=== PATIENT | female | born 1945 | race Caucasian/White ===

== ENCOUNTER 2017-01-19 09:34 | Inpatient (IN) ==
--- NOTE | 2017-01-19 10:14 | EKG Report ---
Test Performed on : 01/19/2017 09:50:46 AM Test Reason : jaw pain Blood Pressure : / mmHG Vent. Rate : 058 BPM Atrial Rate : 058 BPM P-R Int : 214 ms QRS Dur : 154 ms QT Int : 448 ms P-R-T Axes : 009 -10 124 degrees QTc Int : 439 ms Sinus bradycardia. with 1st degree AV block. Left bundle branch block Abnormal ECG No previous ECGs available Unconfirmed Result
[2017-01-19] MEDS ORDERED: ASPIRIN PO STA (10:48)
[2017-01-19] MEDS ORDERED: NITROGLYCERIN SL PRN (10:48)
[2017-01-19 11:05] LABS: MANUAL DIFF NEEDED? NO
[2017-01-19 11:12] LABS: BASO% 0.2 % (0.0-0.8); EOS# 0.11 X1000 (0.0-0.7); EOS% 2.6 % (0.0-10.0); HEMATOCRIT 36.1 % (37.0-47.0); HEMOGLOBIN 11.7 g/dL (12.0-16.0); LYMPH# 1.31 X1000 (1.2-3.4); LYMPH% 30.8 % (20.5-51.1); MCH 31.8 PG (27-31); MCHC 32.4 g/dL (33-37); MCV 98.1 FL (81-99); MONO# 0.48 X1000 (0.11-0.59); MONO% 11.3 % (1.7-9.3); NEUT% 55.1 % (42.2-75.2); PLT 201 X1000 (130-400); RBC 3.68 XMIL (4.2-5.4)
[2017-01-19 11:28] LABS: PTT 25.9 Seconds (22.0-36.0)
[2017-01-19 11:29] LABS: INR 1.01; PROTIME 10.6 Seconds (9.2-11.7)
--- NOTE | 2017-01-19 11:30 | Diag Imaging Result Doc PS360 ---
EXAM: CT HEAD W/O CONTRAST HISTORY: lower extremity weakness TECHNIQUE: CT of the head without contrast with dose reduction (clarity.) COMMENT: There is no evidence of mass effect, bleed, abnormal extra-axial fluid collection, hydrocephalus or acute bony abnormality. There are no previous studies available for comparison. IMPRESSION: No evidence of acute disease. Electronically signed by Jimbo Hester 01/19/2017 11:28 AM
[2017-01-19 11:40] LABS: AGAP 10; ALBUMIN 3.9 g/dL (3.5-5.0); ALKALINE PHOSPHATASE 73 U/L (32-104); BUN 14 mg/dL (8-22); CHLORIDE 102 mmol/L (98-107); COSMO 280; GOT 17 U/L (10-30); GPT 11 U/L (10-36); MAGNESIUM 1.8 mg/dL (1.5-2.7); POTASSIUM 4.2 mmol/L (3.5-5.1); SODIUM 139 mmol/L (136-145); TCO2 27 mmol/L (25-35); TOTAL BILIRUBIN 0.44 mg/dL (0.20-1.00); TOTAL PROTEIN 6.3 g/dL (6.3-8.3)
[2017-01-19 12:05] LABS: CK PROFILE 478 U/L (24-173)
[2017-01-19 12:27] LABS: CK INDEX 0.9 (0.0-2.5); CK-MB 4.37 ng/mL (0.0-5.0)
--- NOTE | 2017-01-19 12:31 | Diag Imaging Result Doc PS360 ---
EXAM: CHEST-2 VIEWS HISTORY: CP TECHNIQUE: PA and lateral chest COMMENT: There is a prominent epicardial fat pad on the right. There is no evidence of acute cardiac or pulmonary disease. No previous studies are available for comparison. IMPRESSION: No acute disease. Electronically signed by Jimbo Hester 01/19/2017 12:29 PM
[2017-01-19] MEDS ORDERED: LASIX IV ONE (12:47)
--- NOTE | 2017-01-19 14:25 | PROVIDER DOCUMENTATION ---
This chart was entered by Lina Ramsey Scribe, acting as scribe for Jorge Oneill MD. HPI-General Adult - General Chief Complaint: General Adult Stated Complaint: JAW PAIN Time Seen by Provider: 01/19/17 10:19 Source: patient Allergies/Adverse Reactions: Patient Allergies Allergy/AdvReac Type Severity Reaction Status Date / Time Sulfa (Sulfonamide AdvReac Intermediate NAUSEA Verified 01/19/17 11:25 Antibiotics) Home Medications: Home Medication List Medication Instructions Recorded Confirmed Last Taken Type Carvedilol [Coreg] 6.25 mg PO BID 01/19/17 01/19/17 01/18/17 09:00 History Clopidogrel Bisulfate [Plavix] 75 mg PO DAILY 01/19/17 01/19/17 01/18/17 09:00 History Cyanocobalamin [Cyanocobalamin] 1,000 mcg IM Q30D 01/19/17 01/19/17 12/23/16 History Cyclosporine 0.05% Oph Drops 2 drop BOTH EYES DAILY 01/19/17 01/19/17 01/18/17 09:00 History [Restasis 0.05% Oph Drops] Lisinopril/Hydrochlorothiazide 1 tab PO DAILY 01/19/17 01/19/17 01/18/17 09:00 History [Lisinopril-Hctz 20-12.5 mg Tab] Metformin HCl [Metformin HCl] 500 mg PO BID AC 01/19/17 01/19/17 01/18/17 09:00 History Multivit with Iron-Minerals 1 each PO DAILY 01/19/17 01/19/17 01/18/17 09:00 History [Complete Senior] Omeprazole [Omeprazole] 20 mg PO DAILY 01/19/17 01/19/17 01/18/17 07:00 History Pravastatin Sodium [Pravastatin 40 mg PO HS 01/19/17 01/19/17 01/18/17 20:00 History Sodium] Spironolactone [Spironolactone] 25 mg PO DAILY 01/19/17 01/19/17 01/18/17 09:00 History - History of Present Illness -Gen Adult Nature of Presenting Problems: 71 year-old female with history of heart disease, 5 heart stints, HOP, HTN, and DM, presents to the ER with right sided jaw pain and weakness. She began having jaw pain yesterday morning while at [employer]lic[employer]. She took a Nitroglycerin but had no change in her pain. She continues to have right sided jaw pain. She was restless through the night and was unable to rest very well. This morning while making the bed she became weak in her lower extremities, predominately in her left leg. She had a negative stress test on 11/18/16, and a negative ECHO in 2016. No other symptoms are presented at this time. Location of Pain/Injury: reports: head (Right jaw) Pain Radiation: reports: no radiation. denies: chest Quality of Pain: reports: aching Severity: reports: mild Onset/Duration: reports: 24 hours ago Timing: reports: still present Context/Activities at Onset: reports: light activity Modifying Factors: improves with: nothing Associated Symptoms: reports: weakness. denies: arm pain, back/neck pain, chest pain, dizziness, fatigue, fever/chills Similar Symptoms Previously?: Yes Recently seen or treated by another doctor?: Yes - Diabetes Related Context Context: denies: low blood sugar, high blood sugar Review of Systems - Adult - REVIEW OF SYSTEMS - ADULT Constitutional: reports: no symptoms reported, see HPI Eyes: reports: no symptoms reported, see HPI Ears, Nose, Mouth & Throat: reports: see HPI, other (Right jaw pain) Cardiovascular: reports: no symptoms reported, see HPI. denies: chest pain Respiratory: reports: no symptoms reported, see HPI Gastrointestinal: reports: no symptoms reported, see HPI Genitourinary: reports: no symptoms reported, see HPI Musculoskeletal: reports: see HPI, muscle weakness (Lower extremities, worse in left side.) Integumentary: reports: no symptoms reported, see HPI Neurological: reports: no symptoms reported, see HPI Psychiatric: reports: no symptoms reported, see HPI Endocrine: reports: no symptoms reported, see HPI Hematologic/Lymphatic: reports: no symptoms reported, see HPI Allergic/Immunologic: reports: no symptoms reported, see HPI All Other Systems: Reviewed and Negative Past History - Adult - PAST MEDICAL HISTORY-ADULT Review of Records: reports: Old Records Reviewed, Nursing Assessment Review, Medications Reviewed, Social history reviewed & non-contributory. - PRIOR SURGERIES/PROCEDURES Surgical/Procedure History: reports: cardiac stent - SOCIAL HISTORY Smoking: non-smoker Substance Use: none/never Alcohol Use Frequency: never Physical Exam-General - PHYSICAL EXAM-ADULT Initial Vital Signs Reviewed: Yes - CONSTITUTIONAL General Appearance: appears well, alert, no apparent distress - EYES Eyes: PERRL/EOMI - HEAD, EARS, NOSE, MOUTH & THROAT HENMT: normocephalic/atraumatic, moist mucous membranes - NECK Neck: non-tender, full range of motion, supple, normal inspection - RESPIRATORY Respiratory: chest non-tender, lungs clear, normal breath sounds, no pleuratic chest pain, no respiratory distress, no accessory muscle use - CARDIOVASCULAR Cardiovascular: normal peripheral pulses, regular rate, rhythm - GASTROINTESTINAL (ABDOMEN) Abdominal Exam: normal bowel sounds, non tender, soft - LYMPHATIC Lymphatic: no adenopathy - MUSCULOSKELETAL Back Exam: normal inspection, no CVA tenderness Extremity: normal range of motion, non-tender, normal inspection, no pedal edema , no calf tenderness - SKIN Integumentary: normal color, normal turgor, warm/dry, warm. negative: diaphoresis, swelling - NEUROLOGIC Neurologic: manager animation II-XII nml as tested, grossly normal, no motor/sensory deficits - PSYCHIATRIC Psych/Mental Status: normal mood/affect, normal thought content, normal thought process, oriented x 3 Progress - PLAN OF CARE/RESULTS Progress/Plan/Lab Results: Vital Signs - 8 hr 01/19/17 09:49 01/19/17 10:48 Temperature 98.0 F Pulse Rate 67 60 Respiratory Rate 18 18 Blood Pressure 151/63 171/76 O2 Sat by Pulse Oximetry 100 95 Orders Category Date Time Status Cardiac Monitoring DIRECTED Care 01/19/17 10:48 Active Oxygen Therapy- ED Nursing DIRECTED Care 01/19/17 10:48 Active Saline Loc NOW Care 01/19/17 10:48 Active CHEST-2 VIEWS [RAD] Stat Exams 01/19/17 10:[address] HEAD W/O CONTRAST [CT] Stat Exams 01/19/17 10:52 Ordered CBC WITH ELECTRONIC DIFF [HEME] Stat Lab 01/19/17 10:30 Results CK PROFILE [SP CHEM] Stat Lab 01/19/17 10:30 Received COMPREHENSIVE METABOLIC PANEL [CHEM] Stat Lab 01/19/17 10:30 Received MAGNESIUM [CHEM] Stat Lab 01/19/17 10:30 Received PRO B-NATRIURETIC PEPTIDE Stat Lab 01/19/17 10:30 Received PROTIME WITH INR [COAG] Stat Lab 01/19/17 10:30 Received PTT [COAG] Stat Lab 01/19/17 10:30 Received TROPONIN T Stat Lab 01/19/17 10:30 Received Aspirin Med 01/19/17 10:48 Discontinued 325 mg PO STAT STA Nitroglycerin Sl [Nitroglycerin] Med 01/19/17 10:48 Active 0.4 mg SL Q5M PRN PRN EKG [EKG] Stat Ther 01/19/17 09:52 Draft EKG [EKG] Stat Ther 01/19/17 10:48 Ordered Result Diagrams: 01/19/17 10:30 01/19/17 10:30 - EKG 1 Time of EKG reading by physician:: 09:50 EKG Read and Signed by:: Jorge Oneill EKG Interpretation (*Must complete 3 of following elements*): Abnormal Rate: 58 (bradycardia) Rhythm: Sinus bradycardia with 1st degree AV block. [place]: normal (PRT 9 -10 124.) QRS: normal (QRS duration 154 ms.) OH Interval: normal (OH interval 214 ms.) Comments: Left bundle branch block. - XRAY 1 XRAY Study: Chest Impression: Normal XRAY Interpretation: No acute disease. - CT/MRI 1 CT Study: Head Impression: Normal CT Results: No evidence of acute disease. - CONSULTS/PCP/HOSPITALIST Notification #1 *Consult/PCP/Hospitalist*: Time Discussed: 14:19 Consult Disposition: other (ADMIT PATIENT TO HOSPITALIST, HE WILL CATH) Departure - Departure Date of Disposition Decision: 01/19/17 Time of Disposition Decision: 14:24 DIAGNOSIS: Angina at rest Disposition: ADMITTED INPATIENT 09 Certified Medical Emergency: Emergent Condition: Stable Referrals and Follow-Ups: Reynaldo Eddy MD [Primary Care Provider] - - Critical Care Note This patient required my direct & personal management of CC.: Yes Attestation - Physician/ MILI Attestation The physician spent face to face time with patient:: Yes Advanced Practice Provider documentation review:: Supervising physician onsite and consulted in the evaluation and care of this patient. The physician did have a face to face encounter with the patient. This chart was documented by the indicated scribe, (Braulio,Lina M, Scribe) and accurately reflects the services I performed and decisions made by me, Jorge Oneill MD, as attested by the provider's signature.
--- NOTE | 2017-01-19 15:22 | EKG Report ---
Test Performed on : 01/19/2017 3:02:54 PM Test Reason : JAW PAIN Blood Pressure : / mmHG Vent. Rate : 068 BPM Atrial Rate : 068 BPM P-R Int : 200 ms QRS Dur : 152 ms QT Int : 434 ms P-R-T Axes : -17 -19 112 degrees QTc Int : 461 ms Normal sinus rhythm. Left bundle branch block Abnormal ECG When compared with ECG of 19-JAN-2017 09:50, (Unconfirmed) No significant change was found Unconfirmed Result
[2017-01-19] MEDS ORDERED: TYLENOL PO PRN (17:21)
[2017-01-19] MEDS ORDERED: ZOFRAN IV PRN (17:21)
--- NOTE | 2017-01-19 17:33 | CONSULTATION ---
DATE OF CONSULTATION: 01/19/2017 INDICATION: Jaw pain. HISTORY OF PRESENT ILLNESS: Ms Steele is a 71-year-old white female with a history of coronary disease who presented for evaluation of right-sided jaw pain. This has apparently been going on since yesterday. This discomfort started upon waking. It only aggravates her with activities such as yawning or other large movements of the jaw. Normal talking does not aggravate the symptom. There is no worsening of the symptom with exertional movements like walking. She noted the pain persisted since yesterday but again only occurs with those large movements of the jaw. She is not having any chest pain. She is not having any diaphoresis, nausea or vomiting. She apparently had similar type symptoms in 2010 when she was catheterized in [place]. At that time she apparently had 2 stents placed. PAST MEDICAL HISTORY: Significant for. 1. Coronary disease with history of PCI previously. She apparently had drug-eluting stents to the RCA and OM in 2003 followed by drug-eluting stents the mid LAD and PDA in [place]. 2. History of left bundle branch block. This is chronic. 3. Hypertension. 4. Hyperlipidemia. 5. Diabetes mellitus. 6. Reflux disease. SOCIAL HISTORY: She does not smoke. FAMILY HISTORY: Significant for hypertension. REVIEW OF SYSTEMS: A 10 system review of systems is negative except for those things mentioned in HPI. PHYSICAL EXAMINATION: Vital signs: She is afebrile. Her heart rates are in the 60s to 70s. Her blood pressure most recent is 151/123. General: She is in no acute distress. HEENT: Oropharynx is moist. She has normal dentition. She does not have any discomfort with palpation of the right jaw area nor does she have any sort of hypermobility or instability in the joint area. There is no clicking upon palpation of the jaw. Her eye examination shows pink conjunctivae. White sclerae. Neck: Examination shows no obvious thyromegaly or thyroid tenderness. Cardiovascular: She is in a regular rate and rhythm. She has no obvious murmurs. She has no S3. She has no lower extremity edema. Chest: Clear bilaterally. She has no increased work of breathing. Abdomen: Soft, nontender, nondistended. She has no obvious organomegaly. Skin Exam: Warm and dry throughout without any rashes. Neurological: Moving all extremities well. Cranial nerves 2-12 are intact without any sensation deficits. PERTINENT DATA: She had a myocardial perfusion scan performed in October demonstrating probably normal myocardial perfusion imaging per the read. No ischemia. Fixed focal mild to moderate severity anterior apical defect and basal septal defect. EF on that study was 53%. She had a chest x-ray today showing no evidence of any acute disease and her EKG shows sinus rhythm with a left bundle. Her laboratory data shows a white count of 4.2, hematocrit 36, platelet count of 201,000. Her INR is 1.01, sodium is 139, potassium 4.2, BUN 14, creatinine 0.7. CK was somewhat elevated at 517, MB was 4.37 which is normal and cardiac enzymes are negative times multiple sets. Her proBNP is 876. Her albumin is 3.9. ASSESSMENT: Symptoms of jaw pain which seem very atypical from a coronary ischemia standpoint, however similar to previous symptoms that she had at the time of percutaneous coronary intervention. PLAN: Patient has apparently had recurrent episodes of chest pain as well as jaw pain with myocardial perfusion imaging not being clearly definitive in October. I had a discussion with the patient's primary director marketing Dr. Eddy and we have decided upon cardiac catheterization to be definitive regarding her coronary anatomy. Risks, benefits, and alternatives were explained to the patient and she agrees to proceed. We will likely do the catheterization around noon. cc: Richie Manzanares MD
--- NOTE | 2017-01-19 18:56 | HISTORY AND PHYSICAL ---
PRIMARY CARE PROVIDER: Dr. Chavarria. PRIMARY MANAGER OF ALLIED HEALTH SERVICES: Reynaldo Eddy MD. CHIEF COMPLAINT: Right jaw pain and a brief period of lower extremity weakness. HISTORY OF PRESENT ILLNESS: Ms. Donna Steele is a 71-year-old, female with a medical history of coronary artery disease with an CA in 1999 with 5 cardiac stents, diabetes mellitus, hyperlipidemia and hypertension who states prior to gnosticism when she woke up she had right jaw pain. It was continuous in nature. She had no nausea or vomiting. No diaphoresis. She states she took nitroglycerin which did not improve the pain. She states she did not sleep well and this morning she awoke to make her bed and felt her legs became extremely weak for about a brief period of 10 minutes before their strength returned. She currently has 2/10 pain in the right jaw. There is no radiation. She denies any fever or chills. Apparently the ER physician spoke with her primary cia agent, Dr. Eddy, who mentioned that she may possibly need a left heart catheterization. We will admit to [facility], trend her cardiac enzymes which currently are negative, repeat an EKG in the morning. She does have a chronic left bundle branch block noted per EKG. She is currently comfortable in no distress. PAST MEDICAL HISTORY: Coronary artery disease, myocardial infarction in the year 1999, arthritis, diabetes mellitus type 2, urinary and stool incontinence, right sciatica, hyperlipidemia, hypertension and GERD. PAST SURGICAL HISTORY: PTCA x5 stents, she had 3 in the year 1999 and 2 in the year 2011. In October of this year she had a stress test with no significant findings although it did show focal mild to moderate apical anterior defect as well as a basal septal defect but nothing acute. She had a left knee replacement, hysterectomy, cholecystectomy, right carpal tunnel , L4-L5 fusion. SOCIAL HISTORY: Denies tobacco, alcohol or illicit drug use. FAMILY HISTORY: Grandmother had cervical cancer. Her mother had COPD. REVIEW OF SYSTEMS: A 14 point review of systems were complete and all were negative except for those mentioned in above HPI. ALLERGIES: Sulfonamides. HOME MEDICATIONS: Coreg 6.25 p.o. twice daily, Plavix 75 mg p.o. daily, cyanocobalamin 1000 mcg IM every 30 days, cyclosporin, Restasis 2 drops OU daily, lisinopril, hydrochlorothiazide 20-12.5 mg 1 tab p.o. daily, metformin 500 mg p.o. twice daily, multivitamin with iron 1 tab p.o. daily, omeprazole 20 mg p.o. daily, pravastatin 40 mg p.o. nightly, spironolactone 25 mg p.o. daily. PHYSICAL EXAMINATION: VITAL SIGNS: Temperature 98.0 degrees, heart rate 74, respiratory rate 15, blood pressure 161/84, O2 saturation 95% on room air. GENERAL: Ms. Donna Steele is a 71-year-old female. She is in no acute distress. She is able to answer questions appropriately. HEENT: Atraumatic, normocephalic. Pupils equal, round, reactive to light. Extraocular movements intact. Tenderness and soreness throughout the right jaw to palpation. NECK: No JVD or carotid bruits noted. CARDIOVASCULAR: S1, S2. Regular rate and rhythm. No rubs, gallops, murmurs. PULMONARY: Clear to auscultation. Bilateral breath sounds decreased with mild crackles in the bases. ABDOMEN: Soft, nontender, nondistended, positive bowel sounds x4. EXTREMITIES: No edema noted. +2 dorsalis and radial pulses. SKIN: Warm, dry, intact. NEUROLOGIC: A and O x4. Moves all extremities equally. LABORATORY DATA: White blood cells 4000, hemoglobin 11, hematocrit 36, platelet count 201,000. Sodium 139, potassium 4.2, BUN 14, creatinine 0.7, glucose 130, magnesium 0.8, bilirubin 0.44, AST 0.44, AST 17, ALT 11, CK 517, troponin 0.01, CRP 2.33, proBNP is 876. IMAGING: Chest x-ray: No acute disease. Head CT: No acute disease. EKG at 9:52: Sinus bradycardia with a first-degree AV block, rate was 58, QTc was 439, appears to be ST elevation in V1 through V4 but this could be inaccurate secondary to the left bundle branch block. Another EKG at 14:32 also shows normal sinus rhythm, left bundle branch block, rate 68, QTc 461. ASSESSMENT/PLAN: 1. Right jaw pain can be elicited with palpation but started yesterday morning. The patient is concerned that this could be cardiac. She denies any chest pain. She denies that it radiates anywhere. The ER physician called Dr. Eddy who recommended possibly a left heart catheterization. Cardiac enzymes currently are negative. EKG with no changes. We will consult brand ambassador promotional model Cardiology, Dr. Manzanares. 2. History of coronary artery disease, myocardial infarction and [address] Manzanares from Cardiology has been consulted. Serial cardiac enzymes so far: CKs are only mildly elevated at 478 minutes and 517. Troponins are both negative. We will repeat EKG in the morning. She did have mildly elevated proBNP and received IV Lasix per ER doctor. 3. Diabetes mellitus type 2. We will do pattern blood glucoses, sliding scale insulin. 4. Hyperlipidemia. Continue statin. 5. Hypertension. Continue home antihypertensives. 6. Deep venous thrombosis prophylaxis. SCDs. Dictated by VIRGINIA Jones for Marcin Magaña MD Patient seen and examined. Agree with VIRGINIA note. It reflects my assessment and plan. Patient being admitted for jaw pain. Her primary cia agent was consulted and apparently it has been decided to arrange a left heart cath. Will trend cardiac enzimes, repeat EKG in the morning and consult cardiology. cc: VIRGINIA Jones MD Dr. Caldwell Luis N. Villanueva, MD MTDD
[2017-01-19] MEDS: COREG PO SCH (20:18)
[2017-01-19] MEDS ORDERED: PRAVACHOL PO SCH (21:00)
[2017-01-20 01:55] LABS: MANUAL DIFF NEEDED? NO
[2017-01-20 02:01] LABS: BASO% 0.2 % (0.0-0.8); EOS# 0.16 X1000 (0.0-0.7); EOS% 3.2 % (0.0-10.0); HEMATOCRIT 38.7 % (37.0-47.0); HEMOGLOBIN 12.5 g/dL (12.0-16.0); LYMPH# 1.77 X1000 (1.2-3.4); MCH 31.3 PG (27-31); MCHC 32.3 g/dL (33-37); MONO# 0.68 X1000 (0.11-0.59); MONO% 13.4 % (1.7-9.3); MPV 10.5 FL (7.4-10.4); NEUT% 48.2 % (42.2-75.2); PLT 216 X1000 (130-400); RBC 3.99 XMIL (4.2-5.4)
[2017-01-20 02:09] LABS: HEMOGLOBIN A1C 6.1 % (4.8-6.0)
[2017-01-20 02:19] LABS: INR 1.02; PROTIME 10.7 Seconds (9.2-11.7); PTT 25.2 Seconds (22.0-36.0)
[2017-01-20 02:23] LABS: AGAP 12; ALBUMIN 4.1 g/dL (3.5-5.0); ALKALINE PHOSPHATASE 75 U/L (32-104); BUN 22 mg/dL (8-22); CALCIUM 9.2 mg/dL (8.8-10.2); CHLORIDE 99 mmol/L (98-107); COSMO 286; GOT 16 U/L (10-30); GPT 11 U/L (10-36); MAGNESIUM 1.9 mg/dL (1.5-2.7); POTASSIUM 3.7 mmol/L (3.5-5.1); SODIUM 141 mmol/L (136-145); TCO2 30 mmol/L (25-35); TOTAL PROTEIN 6.9 g/dL (6.3-8.3)
--- NOTE | 2017-01-20 06:53 | EKG Report ---
Test Performed on : 01/20/2017 06:11:04 AM Test Reason : angina Blood Pressure : / mmHG Vent. Rate : 068 BPM Atrial Rate : 068 BPM P-R Int : 234 ms QRS Dur : 158 ms QT Int : 442 ms P-R-T Axes : 041 002 157 degrees QTc Int : 469 ms Sinus rhythm. with 1st degree AV block. Left bundle branch block Abnormal ECG When compared with ECG of 19-JAN-2017 15:02, (Unconfirmed) NC interval has increased ST more depressed in far lateral leads [id number]-V6 Confirmed by Jerman Manzanares DO ([id number]) on 01/20/2017 6:15:58 PM
[2017-01-20] MEDS ORDERED: PRILOSEC PO SCH ×2 (07:00→09:00)
[2017-01-20] MEDS: COREG PO SCH (08:40)
[2017-01-20] MEDS ORDERED: PRINZIDE 20/12.5MG PO SCH (09:00)
[2017-01-20] MEDS ORDERED: PLAVIX PO SCH (09:00)
[2017-01-20] MEDS ORDERED: THERA M PLUS PO SCH (09:00)
[2017-01-20] MEDS ORDERED: ALDACTONE PO SCH (09:00)
[2017-01-20] MEDS ORDERED: RESTASIS 0.05% OPH DROPS BOTH EYES SCH (09:00)
[2017-01-20] MEDS ORDERED: ASPIRIN PO SCH (09:00)
--- NOTE | 2017-01-20 09:17 | PROGRESS NOTE ---
DATE: 01/20/2017 SUBJECTIVE: Patient reports not having any right jaw pain, nausea, vomiting, indigestion, or shortness of breath. OBJECTIVE: Vital Signs: Temperature 98.8 degrees, heart rate 68, respiratory rate 12, blood pressure 127/72, O2 saturation 95% on room air. General Examination: This is a 71-year-old female, lying in bed in no acute distress. HEENT: Head is normocephalic, atraumatic. Anicteric sclerae and pale conjunctivae. Neck: Supple. No JVD noted. No carotid bruits. No lymphadenopathy. Cardiovascular Exam: S1, S2 heard. No murmurs, gallops, or rubs. Regular rate and rhythm. Respiratory exam: Clear bilaterally to auscultation. Mildly reduced breath sounds in both pulmonary evans with mild crackles in both bases, but patient is not using any accessory muscles or having work of breathing. Abdomen: Soft, nontender to palpation. Nondistended. Bowel sounds present. No organomegaly. Extremities: No clubbing, cyanosis, or edema. Peripheral pulses present in both legs. Neurological exam: Patient is alert and oriented x3. Moves 4 extremities. LABORATORY DATA: The CBC and BMP is unremarkable. Troponins checked 3 times are completely negative. ASSESSMENT AND PLAN: 1. Right jaw pain. For me, it is very atypical symptom for acute coronary syndrome or any signs of ischemia. In any case, apparently because she got this symptom before when she had stents placed a few years ago in [place], cardiology on-call consulted with his primary transportation superintendent, Dr. Eddy. It was decided to have left heart catheterization today. We will follow. Will check the results of that exam later today. 2. Coronary artery disease. Patient had 5 stents placed a few years ago and apparently she was having some chest discomfort in the previous months. As we mentioned before, plan is to do left heart catheterization today. 3. Diabetes mellitus type 2. We have checked hemoglobin A1c and that is 6.1, which is under excellent diabetes control. We will continue with sliding scale insulin. 4. Hyperlipidemia. We will continue with the statins. 5. Hypertension. Blood pressure is well controlled; systolic blood pressure is in the range of 110 to 130s. We will continue with the same management. 6. Deep vein thrombosis prophylaxis with sequential compression devices. cc: Marcin Magaña MD
[2017-01-20] MEDS ORDERED: HEPARIN 1000 UNITS/NS 2,000 UNIT/1,000 ML IV.SOLN ONE (11:58)
[2017-01-20] MEDS ORDERED: NITROGLYCERIN ONE (12:10)
[2017-01-20] MEDS ORDERED: CLAVE PUMP SET NO FILTER 12260 ONE (12:17)
[2017-01-20] MEDS ORDERED: VERSED ONE (12:17)
[2017-01-20] MEDS ORDERED: NS 1,000 ML ONE (12:17)
[2017-01-20] MEDS ORDERED: CLAVE TWINSITE 32 IN 11959 ONE (12:17)
[2017-01-20] MEDS ORDERED: DILAUDID ONE (12:17)
--- NOTE | 2017-01-20 13:32 | CARDIAC CATH REPORT ---
PROCEDURE NAME: - INDICATION FOR THE PROCEDURE: Patient with jaw pain concerning for possible unstable angina. History of previous PCI to the LAD, circumflex and right coronary arteries. PROCEDURES PERFORMED: 1. Left heart catheterization. 2. Selective coronary angiography. 3. Left ventriculogram. PROCEDURE IN DETAIL: Ms. Steele was brought to the catheterization laboratory in a fasting state. Informed consent was obtained. Prepped in usual fashion. Anesthetized over the right radial artery after Jasmeet's test was proved adequate. A 5-Malian sheath was placed via true Seldinger technique. Radial cocktail was administered. Sheaths and catheters were introduced. Hemodynamic measurements made in the ascending thoracic aorta. Coronary angiography was performed in multiple views using JL3.5 and JR4 diagnostic catheters. Left heart catheterization and left ventriculogram was performed using the JR4. At the conclusion of the procedure all sheaths and catheters removed. TR band was left inflated at 12 mL of air. Good capillary refill. Good hemostasis. 5-10 mL of blood loss. 70 mL of IV contrast. No apparent complications. FINDINGS: 1. The left main has a distal 20% lesion. 2. Left anterior descending has minor luminal irregularities in the proximal as well as in the patent mid vessel stent. Minor luminal irregularities noted just after the termination of the stent. The distal vessel appears normal. 3. Circumflex originates from left main. There is a patent stent in the proximal vessel with roughly 30% in-stent stenosis. Mid and distal circumflex appeared normal with minor luminal irregularities noted in the obtuse marginal. 4. Right coronary is a large vessel originates from the right coronary cusp. Minor luminal irregularities are noted throughout the vessel including in the widely patent mid vessel stent. 5. Aortic blood pressure is 100/60. Left ventricle pressure is 107 over -1 with an LVEDP of 11. Ejection fraction is noted to be 40% with wall motion indicative of a bundle branch block. ASSESSMENT: Ms. Steele is a 71-year-old white female with a history of previous PCI who presented with jaw pain consistent with a previous episode of angina that she had requiring a PCI. PLAN: At this point she has no flow-limiting coronary lesions. She may return to the [facility] for usual postprocedure convalescence and from our standpoint may be discharged later on today. I would continue with aggressive secondary risk factor modification. cc: Richie Manzanares MD
[2017-01-20 15:44] VITALS: BP 108/46
--- NOTE | 2017-01-20 17:04 | DISCHARGE SUMMARY ---
ADMISSION DATE: 01/19/2017 DISCHARGE DATE: 01/20/2017 CONSULTATIONS: Dr. Richie Manzanares with Cardiology. PERTINENT PROCEDURES: 1. Head CT showed no evidence of acute disease. 2. Left PCI, performed by Dr. Jerman Manzanares, that showed no flow-limiting coronary lesions. DISCHARGE DIAGNOSES: 1. Symptoms of pain that are atypical from coronary ischemia, but similar to previous symptoms she had at the time of a previous on percutaneous coronary intervention. The patient was evaluated by Cardiology. They did a cardiac catheterization and found no flow-limiting lesions. Will be discharged home today. She is to continue with aggressive secondary risk factor modification. 2. Coronary artery disease. The patient does have [address] The patient had 5 stents placed a few years ago, status post clean left heart catheterization. 3. Diabetes mellitus type 2. Hemoglobin A1c is 6.1. 4. Hyperlipidemia. Continue statin. 5. Hypertension, controlled. HOSPITAL COURSE: Ms. Steele is a 71-year-old, female, with history of coronary artery disease. Presented to the ED for evaluation of right-sided jaw pain that had been ongoing since the day before her admission. The discomfort started when she woke up. It only aggravates her with activities, such as yawning or other large movements of the jaw. Normal talking does not aggravate the symptoms. There is no worsening of symptoms with external exertional movements, like walking. She noted the pain persisted and, again, only occurs with those large movements of the jaw. She is not having any chest pain, diaphoresis, nausea, or vomiting. Apparently, she had similar symptoms in 2010, when she had a heart cath in [place] and, at that time , she had stent placement. Dr. Manzanares had a discussion with the patient's primary waste and batting waste chopper , Dr. Eddy. They decided to do a cardiac catheterization to be definitive regarding her coronary anatomy. On 01/20/2017, she underwent a left heart cath that showed left main that had a distal 20% lesion, LAD that has minor luminal irregularities in the proximal, as well as in the patent mid-vessel stent. Minor luminal irregularities noted after the termination of the stent. Distal vessel is normal. originates from the left main. Main with a patent stent in the proximal vessel, with roughly 30% in-stent stenosis. Mid and distal circ appear normal, with minor luminal irregularities noted in the obtuse marginal. Right coronary is a large vessel that originates from the right coronary cusp. Minor luminal irregularities are noted throughout the vessel, including in the mildly-patent mid-vessel stent. EF was noted to be 40%, with wall motion indicative of a bundle branch block. She had no flow-limiting coronary lesions. She was returned to the [facility] for usual post-procedure convalescence and, from a Cardiology standpoint, can be discharged later on this afternoon to continue with her aggressive secondary risk factor modification. VITAL SIGNS AT TIME OF DISCHARGE: Temperature is 97.6 degrees, heart rate 76, respirations 12, blood pressure 145/83, O2 is 95% on room air. DISCHARGE DIET: Healthy heart. DISCHARGE MEDICATIONS: As per Dr. iFnn: 1. Coreg 6.25 mg p.o. b.i.d. 2. Plavix 75 mg p.o. daily. 3. On B12 at 1000 mcg IM q.30 days. 4. Restasis, 2 drops both eyes daily. 5. Lisinopril/hydrochlorothiazide 20/12.5 mg, 1 tab p.o. daily. 6. Metformin 500 mg p.o. b.i.d. 7. Complete Senior, 1 each p.o. daily. 8. Prilosec 20 mg p.o. daily. 9. Pravastatin 40 mg p.o. at bedtime. 10. Spironolactone 25 mg p.o. daily. FOLLOWUP: Ms. Steele is being discharged home. She will follow up with Dr. Eddy in 4 to 6 weeks, as well as her primary care provider, Dr. Chavarria. She can return to the ED for any worsening of symptoms. Discharge time: 35 minutes Dictated by VIRGINIA Marcano for Marcin Magaña MD Patient seen and examined. Agree with VIRGINIA note. It reflects my assessment and plan. Patient explained about results of cardiac workup. Instructed to see her primary waste and batting waste chopper and if she notices similar symptoms like chest pain, chest pressure, shortness of breath she needs to return to ER. cc: MD Dr. Deon Fofana
--- NOTE | 2017-03-05 10:00 | ED EKG INTERP ---
This chart was entered by Lina Ramsey Scribe, acting as scribe for Jorge Oneill MD. EKG Interpretation - EKG Time of EKG reading by physician:: 15:02 EKG Read and Signed by:: Jorge Oneill EKG Interpretation (*Must complete 3 of following elements*): Normal Rate: 68 [place]: normal (PRT axis -17 -19 112.) QRS: normal (QRS duration 152 ms.) OH Interval: normal (OH interval 200 ms.) Comments: Left bundle branch block. Attestation - Physician/ MILI Attestation Patient care was provided by Advanced Practice Provider:: No The physician spent face to face time with patient:: Yes Advanced Practice Provider documentation review:: Supervising physician onsite and consulted in the evaluation and care of this patient. The physician did have a face to face encounter with the patient. This chart was documented by the indicated scribe, (Lina Ramsey Scribe) and accurately reflects the services I performed and decisions made by Nino matamoros Christophe I, MD, as attested by the provider's signature.
== END 2017-01-20 18:40 | disposition home or self-care (01) ==
LOC: ED 09:34 → EDIPHOLD 15:03 → 3S 16:26
PROVIDERS: ATTEND Internal Medicine

== ENCOUNTER 2019-04-15 02:43 | Inpatient (IN) ==
[2019-04-15] MEDS ORDERED: NITROGLYCERIN SL PRN ×2 (05:32→11:52)
[2019-04-15] MEDS ORDERED: TYLENOL PO PRN (05:32)
[2019-04-15] MEDS ORDERED: ZOFRAN IV PRN (05:32)
[2019-04-15] MEDS ORDERED: SALINE LOCK IV FLUID XX ONE (05:32)
[2019-04-15] MEDS ORDERED: LOVENOX SUBQ SCH (05:45)
[2019-04-15 05:56] LABS: BASO# 0.01 X1000 (0.0-0.2); BASO% 0.2 % (0.0-0.8); EOS# 0.18 X1000 (0.0-0.7); HEMATOCRIT 33.6 % (37.0-47.0); HEMOGLOBIN 10.5 g/dL (12.0-16.0); LYMPH# 1.44 X1000 (1.2-3.4); LYMPH% 31.9 % (20.5-51.1); MCH 31.3 PG (27-31); MCHC 31.3 g/dL (33-37); MONO# 0.47 X1000 (0.11-0.59); MONO% 10.4 % (1.7-9.3); MPV 10.4 FL (7.4-10.4); NEUT# 2.41 X1000 (1.4-6.5); NEUT% 53.5 % (42.2-75.2); PLT 189 X1000 (130-400); RBC 3.36 XMIL (4.2-5.4); RDW 12.6 % (11.5-14.5); WBC 4.51 X1000 (4.8-10.8)
--- NOTE | 2019-04-15 06:10 | HISTORY AND PHYSICAL ---
CHIEF COMPLAINT: Chest pain. HISTORY OF PRESENT ILLNESS: Ms. Steele is a 74-year-old female with an extensive cardiac history. She has known coronary artery disease with stenting times 5. She started having chest pain yesterday that was substernal and left-sided chest pain that radiated into her left arm. She did state that she had some nausea. No vomiting. Did become diaphoretic with the pain. It is now resolved except for some pain in the left arm. She does have a history of diabetes mellitus type 2 as well as hyperlipidemia and hypertension as well as some GERD, urinary incontinence. She had a myocardial infarction in the year 1999 and asthma. She originally went to the emergency room at [facility] and she was sent here for cardiology consultation. She will be placed on the medical floor for further evaluation and treatment. PAST MEDICAL HISTORY: See HPI. PREVIOUS SURGICAL HISTORY: Stenting times 5, left knee replacement, hysterectomy, cholecystectomy, right carpal tunnel release, L4-L5 fusion. SOCIAL HISTORY: No tobacco, alcohol or illicit drugs. FAMILY HISTORY: Cervical cancer in her grandmother. Mother had COPD. ALLERGIES: Sulfa medications. HOME MEDICATIONS: A list of home medications is being reconciled by Nursing. An order will be placed in the computer. These will be restarted when appropriate. REVIEW OF SYSTEMS: Fourteen-point review of systems conducted with the patient. Pertinent positives listed above in the HPI. All other systems were reviewed and found to be negative. PHYSICAL EXAMINATION: VITAL SIGNS: Temperature 98.2, pulse 59, respirations 18, blood pressure 117/59, oxygen saturation 98% on room air. GENERAL: Pleasant 74-year-old female lying in the ER stretcher, answers all questions appropriately. She is alert and oriented times 3. HEENT: Head is atraumatic, normocephalic. Pupils equal, round, reactive to light. Extraocular eye movement is intact. Sclera is anicteric. Conjunctiva is pink. Oral mucosa is moist. NECK: Supple. No JVD. No thyromegaly. Trachea is midline. No cervical lymphadenopathy. CARDIAC: S1, S2 appreciated. No murmurs, gallops or rubs. LUNGS: Clear to auscultation bilaterally. No rhonchi, wheezes or rales. Symmetric rise and fall with respirations. ABDOMEN: Soft, nondistended, nontender. Bowel sounds present all 4 quadrants, normoactive. No pulsatile mass. No organomegaly. EXTREMITIES: No clubbing, cyanosis or edema. Two-plus pedal pulses bilaterally. SKIN: Warm, dry and intact. No acute lesions or rash. NEUROLOGICAL: No focal motor deficits, otherwise nonfocal examination. DIAGNOSTIC DATA: Chest x-ray pending. LABORATORY DATA: Her generation 5 troponin was 16.19. However, this is still within the reference range. Recheck on troponin is pending. EKG is pending. ASSESSMENT AND PLAN: 1. Chest pain, rule out acute myocardial infarction. Trend cardiac enzymes. Consult Dr. Ramos. We will order a stress test. Defer further treatment to Cardiology. 2. History of coronary artery disease, aware. We will restart home medications when available. 3. Diabetes mellitus type 2. Sliding scale insulin with fingerstick blood sugars. 4. Hyperlipidemia. Check a lipid profile. Restart statin once it is placed in the computer. 5. Hypertension. Continue home antihypertensives once they are placed in the computer. She is normotensive at this time after having a nitroglycerin patch. Further recommendations per patient clinical course. Dictated by VIRGINIA Good for Edward Amador MD I have performed a face to face diagnostic evaluation. Labs/Xrays- reviewed. Exam- Chest - clear, CV- regular. A/P- Chest Pain- Admit, cardiac work up, ASA, Cardiology consult. Dr. Amador cc: VIRGINIA Good MD [facility]
--- NOTE | 2019-04-15 06:32 | EKG Report ---
Test Performed on : 04/15/2019 06:14:29 AM Test Reason : cp Blood Pressure : / mmHG Vent. Rate : 059 BPM Atrial Rate : 059 BPM P-R Int : 214 ms QRS Dur : 160 ms QT Int : 472 ms P-R-T Axes : 029 013 149 degrees QTc Int : 467 ms Sinus bradycardia. with 1st degree AV block. Left bundle branch block Abnormal ECG When compared with ECG of 20-JAN-2017 06:11, No significant change was found Confirmed by Griffin GAY, P.J.M ([id number]) on 04/15/2019 5:40:03 PM
[2019-04-15] MEDS ORDERED: PRILOSEC PO SCH (07:00)
[2019-04-15 07:27] LABS: AGAP 10; ALB/GLOB RATIO 1.7; ALBUMIN 3.8 g/dL (3.5-5.0); ALKALINE PHOSPHATASE 68 U/L (32-104); BUN 20 mg/dL (8-22); CALCIUM 8.6 mg/dL (8.8-10.2); CHLORIDE 104 mmol/L (98-107); COSMO 278; CREATININE 0.8 mg/dL (0.5-0.9); ESTIMATED GFR > 60; GLUCOSE 99 mg/dL (70-104); GOT 16 U/L (10-30); GPT 11 U/L (10-36); POTASSIUM 4.4 mmol/L (3.5-5.1); SODIUM 138 mmol/L (136-145); TCO2 24 mmol/L (25-35); TOTAL BILIRUBIN 0.32 mg/dL (0.20-1.00); TOTAL PROTEIN 6.1 g/dL (6.3-8.3)
[2019-04-15] MEDS: HUMALOG SUBQ SCH ×3 (07:39→16:21)
[2019-04-15] MEDS ORDERED: ASPIRIN PO SCH (09:00)
[2019-04-15] MEDS ORDERED: LEXISCAN ONE (12:03)
--- NOTE | 2019-04-15 14:14 | Diag Imaging Result Document ---
PROCEDURE NAME: MYOCARDIAL PERF SCAN, STR/REST - 04/15/2019 PROCEDURE: Walking Lexiscan Cardiolite stress test. DESCRIPTION OF PROCEDURE IN DETAIL: Following Lexiscan infusion, Cardiolite was injected. Gated SPECT images were obtained in standard views. There was no chest pain. Baseline electrocardiogram revealed left bundle branch block. Stress electrocardiogram was nondiagnostic. Total of 11.4 mCi of Cardiolite was injected for the rest phase; 33.9 mCi of Cardiolite was injected for the stress phase. Images were obtained in standard views. Images revealed chest wall and diaphragmatic attenuation. Left ventricular end-diastolic cavity size was 128. There is severe grade, fixed defect in the left ventricular apex. In addition, there is moderate size moderate grade fixed defect in the inferior wall and in the septal wall suggestive of infarct or scar. There is no evidence of ischemia. Left ventricular ejection fraction by gated SPECT was 66%. There is apical hypokinesis. CONCLUSIONS: 1. No chest pain. 2. Nondiagnostic stress electrocardiogram. 3. Myocardial perfusion images revealed no evidence of ischemia. 4. There is severe grade, fixed defect in the left ventricular apex suggestive of infarct or scar. In addition, there is moderate-size fixed defect in the inferior wall suggestive of scar. There is also a fixed defect in the inferoseptal wall. This is suggestive of a cardiomyopathy picture. There is no evidence of ischemia. Left ventricular ejection fraction by gated SPECT was 66%. cc: MD Franki Onofre CRNP
[2019-04-15 15:29] VITALS: BP 118/61
[2019-04-15] MEDS ORDERED: COREG PO SCH (21:00)
[2019-04-15] MEDS ORDERED: PRAVACHOL PO SCH (21:00)
[2019-04-15] MEDS ORDERED: TYLENOL PO SCH (21:00)
[2019-04-15] MEDS ORDERED: NEURONTIN PO SCH (21:00)
[2019-04-15] MEDS ORDERED: PRINZIDE 20/12.5MG PO SCH (21:00)
--- NOTE | 2019-04-15 21:09 | CARDIOLOGY CONSULTATION ---
DATE: 04/15/2019 CONSULTATION REQUESTED BY: Hospitalist service. REASON: Chest pain. HISTORY: Mrs. Steele is a pleasant 74-year-old female who is a patient of mine. I saw her just recently on 04/11/2019. Since then, she has been fine until yesterday. She says that she went in the morning to a [employer] factory where she enjoyed the moment with her friends. She went from there to have lunch. She ate a little more than usual, and after that for the rest of the afternoon she did fine. At about 4:30 p.m., she started having some discomfort in the left arm, which is unusual for her and not the typical symptom of her angina pectoris. This went on intermittently through the ensuing hours. At 8:30 p.m., she took a nitroglycerin that seemed to provide some minor relief. Eventually, this went on and about 2:00 in the morning she really got scared about the pain in the left arm. She acknowledges it got worse by trying to undo her bra by turning the arm inside backwards. At any rate, in the ER at [facility] at 2:00, they gave her some nitroglycerin paste and she was sent to this hospital for further care, because I happened to be her house director. This morning, she is still having some discomfort in the arm and, in fact, she hurts when I touch the triceps area of the left arm. That is tender as opposed to the right arm. The patient has had troponin checked once and is negative. Her EKG unfortunately shows left bundle branch block and it has not changed. It is the same pattern that she has had for a long time. Her proBNP level is normal at 225 mcg/mL. Her LDL cholesterol 56, HDL 51, total cholesterol 113, triglycerides 111. She is not in any distress. PAST HISTORY: Significant for severe coronary heart disease. She had previous stent to right coronary artery, obtuse marginal branch of the circumflex, and LAD, as well as posterior descending branch of right coronary artery in the past. The last acute intervention took place in 2010. In 2017, we did a nuclear stress test that showed a fixed, focal, mild to moderate in severity anteroapical defect. She underwent heart catheterization by Dr. Richie Manzanares on 01/20/2017, that showed left main 20% stenosis, LAD minor irregularities, circumflex 30% in-stent stenosis. No critical lesions were noted on that heart catheterization. That was done on 01/20/2017. The patient has a history of hyperlipidemia. She has some back pain and chronic arthritis. She has hypertension, diabetes mellitus type 2, acid reflux. SURGICAL HISTORY: Positive for cholecystectomy, bilateral knee replacement, carpal tunnel syndrome, right hand, bladder sling, hysterectomy, partial, and epidural injections for back pain, and back surgery in the past. SOCIAL HISTORY: She is . She is retired. She has 5 grownup children. She used to work at a [employer] in [place] many years ago. Not a smoker or drinker. FAMILY HISTORY: Positive for coronary heart disease in her father. HOME MEDICATIONS: At the time of this dictation, included: 1. Gabapentin. 2. Lisinopril/ hydrochlorothiazide. 3. Omeprazole. 4. Pravastatin. 5. Spironolactone. 6. Carvedilol. 7. Acetaminophen. ALLERGIC: Sulfa drugs. REVIEW OF SYSTEMS: Besides what I have reported in HPI, it is really noncontributory. The patient has been doing really fine and relatively well until this episode. As I said, I had seen her at my office 5 days ago when she was just free of any major complaints. PHYSICAL EXAMINATION: Vital signs: Today, blood pressure is 113/56, temperature 97.7 degrees, pulse 62, respirations 18. General: She is awake, alert, oriented, in no distress. HEENT: Unremarkable. Chest: Clear to auscultation and percussion. Heart: Sounds regular and rhythmic. No gallop or murmur. Abdomen: Nontender. Extremities: Show good pulses. No edema. She has tenderness to palpation of the tricipital area of the left arm that is clearly obvious on examination. Neurological: She moves 4 extremities. Follows commands. IMPRESSION: 1. Patient presenting with really atypical pain. She has pain in the left arm which everybody is thinking could be angina equivalent. I believe based on the examination that I have performed, that this is musculoskeletal pain. 2. Abnormal electrocardiogram, left bundle branch block. 3. Severe coronary heart disease, history of stents to circumflex, left anterior descending, posterior descending branch of the right coronary artery, and right coronary artery proper in the past. Last heart catheterization in December 2016 showed patent vessels. 4. Stable history of hypertension. 5. History of diabetes mellitus. 6. Optimal control of hyperlipidemia. RECOMMENDATION: At this time, we will do a nuclear stress test using walking Lexiscan protocol. If that test is negative, I believe the patient can be discharged home with instructions to take acetaminophen and muscle relaxants. We will follow her. cc: Reynaldo Eddy MD MTDD
[2019-04-16] MEDS ORDERED: DITROPAN PO SCH (09:00)
[2019-04-16] MEDS ORDERED: ALDACTONE PO SCH (09:00)
[2019-04-16] MEDS ORDERED: THERA M PLUS PO SCH (09:00)
[2019-04-16] MEDS ORDERED: VITAMIN B-12 PO SCH (09:00)
[2019-04-16] MEDS ORDERED: VITAMIN D PO SCH (09:00)
[2019-04-16] MEDS ORDERED: PLAVIX PO SCH (09:00)
[2019-04-16] MEDS ORDERED: PRILOSEC PO SCH (09:00)
[2019-04-16] MEDS ORDERED: FERROUS SULFATE PO SCH (09:00)
--- NOTE | 2019-04-16 19:58 | DISCHARGE SUMMARY ---
ADMISSION DATE: 04/15/2019 DISCHARGE DATE: 04/15/2019 DISCHARGE DISPOSITION: Home. DISCHARGE CONDITION: Hemodynamically stable. She denies anymore chest pain, shoulder pain, or shortness of breath. Her nuclear medicine stress test was negative. She was advised to follow up with her regular physician. Discussed about possible gastritis or gastric reflux contributing to her symptoms, and possibility of musculoskeletal or shoulder joint arthritis. DISCHARGE DIAGNOSES: 1. Chest pain, rule out. 2. History of coronary artery disease, requiring stent in 2009. 3. History of diabetes mellitus type 2. 4. Hyperlipidemia. 5. Hypertension. 6. Gastroesophageal reflux disease. 7. Asthma DISCHARGE MEDICATIONS: Acetaminophen 500 mg b.i.d., acetaminophen PM 500 mg at nighttime, vitamin B12, 1000 mcg daily, multivitamin with minerals 1 tablet daily, carvedilol 6.25 mg b.i.d., gabapentin 100 mg b.i.d., ferrous sulfate 325 mg daily, lisinopril/hydrochlorothiazide 1 tablet b.i.d., metformin 500 mg b.i.d. with meals, nitroglycerin 0.4 mg sublingual as needed for chest pain, omeprazole 20 mg daily, oxybutynin 10 mg daily, clopidogrel 75 mg daily, pravastatin 40 mg at nighttime, spironolactone 12.5 mg daily, cholecalciferol 1000 units daily. CONSULTATIONS DURING HOSPITALIZATION: Cardiology, Dr. Eddy. VITALS AT TIME OF DISCHARGE: Temperature 97.5 degrees, pulse 66, respiratory rate 19, blood pressure 118/61, saturating 97% on room air. PHYSICAL EXAMINATION: Not in acute distress. Oral cavity is moist. Air entry bilaterally equal. No wheeze, rhonchi, crackles. S1, S2. No murmur, rub, or gallop. Abdomen: Soft, nontender. Extremities: No clubbing, cyanosis, or edema. She is alert and oriented x3. There is no chest wall tenderness. Mild tenderness on the left shoulder joint movement. No tenderness on the back. LABS AT TIME OF DISCHARGE: WBC 4.1, hemoglobin 10.5, platelet 189,000. BUN 20, creatinine 0.8. No microbiology data. IMAGING DURING HOSPITAL ADMISSION: Myocardial perfusion scan did not have any chest pain, no evidence of ischemia. There was severe grade fixed defect in the left ventricular apex suggestive of infarct or scar. In addition, there was moderate-sized fixed defect in the inferior wall suggestive of scar. There was also a fixed defect in the inferoseptal wall suggestive of cardiomyopathy. There was no evidence of ischemia. Left ventricular ejection fraction was 66%. HOSPITAL COURSE SUMMARY: Ms. Steele is a 74-year-old, lady, with past medical history of coronary artery disease and myocardial infarction requiring a stent about 5 times close to year 2007 or 2009, who came in with chief complaints of substernal left-sided chest pain radiating to her left arm associated with nausea and diaphoresis. By the time she came to the emergency room, her chest discomfort had improved. She did have though, pain in her left arm. She does have history of [id number] diabetes mellitus, hyperlipidemia, hypertension, GERD, so she was admitted overnight for observation. She underwent nuclear medicine stress test which did not detect any evidence of inducible ischemia, though she did have scar suggestive of previous coronary artery disease, and she did not have any chest pain, so it was thought that her chest pain could be noncardiac in origin since there was no inducible ischemia. She does have prior history of chronic GERD and she has been on antacid medication. It was thought that the acid reflux symptoms could be mimicking it. There was also a possibility of left shoulder arthritis causing her to have those pains. She was advised to have follow up with her regular doctor. Detailed discharge instructions were given to patient and her family at bedside. Their questions have been answered. TIME SPENT: More than 30 minutes spent examining the patient. cc: Hitesh Macias MD
== END 2019-04-15 17:28 | disposition home or self-care (01) | DRG 554 ==
LOC: 3N 02:43 → SUATTDRO 02:43
PROVIDERS: ATTEND Internal Medicine